=== PATIENT | male | born 1980 | race Two or more races ===

== ENCOUNTER 2020-03-12 19:30 | Emergency (ER) | payer MEDICAID ==
[~2020-03-12] VITALS: Ht 188 cm; Wt 154.7 kg
[2020-03-12 21:09] VITALS: BP 133/82
== END 2020-03-12 22:01 | disposition home or self-care (01) ==
LOC: ER 19:34
DX: S80.811A Abrasion, right lower leg, initial encounter (principal); I83.891 Varicose veins of right lower extremity with other complications; E78.5 Hyperlipidemia, unspecified; X58.XXXA Exposure to other specified factors, initial encounter; Y93.89 Activity, other specified; Y92.89 Other specified places as the place of occurrence of the external cause; Y99.8 Other external cause status